=== PATIENT | male | born 1995 | race African-American/Black ===

== ENCOUNTER 2019-11-02 21:46 | Emergency (ER) | payer BC ==
[2019-11-02 23:12] VITALS: BP 121/80
[2019-11-02] MEDS ORDERED: CEPHALEXIN 500 MG CAPSULE PO ONE (23:27)
--- NOTE | 2019-11-02 23:33 | ER Document Report ---
ED General - General Chief Complaint: Insect Bite Stated Complaint: RIGHT HIP CYST Notes: Patient is a 23-year-old male with no significant past medical history presents to the emergency department with chief complaint of tender/hard and warm area to the right proximal buttock. He reports area began initially about 3 days ago. He states he is unsure of the etiology. 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 States he thought maybe he got struck in that area or hit the ground and had a hematoma collection. He states his is a nurse and felt like the area was warm and slightly erythematous, she sterilized a needle and poked it in the area and drained scant blood. He states the area of puncture has healed over but it is still warm, hard and red. He denies any purulent drainage, proximal streaking or fevers. No chills or night sweats. Past Medical History - Social History Smoking Status: Never Smoker Family History: Reviewed & Not Pertinent Review of Systems - Review of Systems Skin: Change in color -: Yes All other systems reviewed and negative Physical Exam - Vital signs Vitals: Temp Pulse Resp BP Pulse Ox 98.0 F 80 16 121/80 99 11/02/19 23:08 11/02/19 23:08 11/02/19 23:08 11/02/19 23:08 11/02/19 23:08 - General General appearance: Appears well, Alert - Respiratory Respiratory status: No respiratory distress Chest status: Nontender Breath sounds: Normal Chest palpation: Normal - Cardiovascular Rhythm: Regular Heart sounds: Normal auscultation Murmur: No - Neurological Neuro grossly intact: Yes Cognition: Normal Orientation: AAOx4 - Psychological Associated symptoms: Normal affect, Normal mood - Skin Skin Color: Other - Area of induration and faint erythema to the right proximal buttock approximately 3 cm in vertical diameter by 7 cm in horizontal diameter. No fluctuance is appreciated. No drainage. No expanding cellulitis or proximal streaking. Slightly tender to palpation. Course - Re-evaluation Re-evalutation: 11/02/19 23:32 History and physical consistent with cellulitis or early abscess formation versus possible persistent hematoma from trauma. Offered patient further work- up with lab work and ultrasound of the area for more definitive answer. Advised would rather try the more conservative, "easy" approach. His tetanus is up-to-date from the . He would like to trial a course of antibiotics to see if it improves prior to have any additional modalities and studies. [place] 2 to 3 days for reevaluation. He will return here or any ER immediately with any new, persistent or worsening symptoms. He verbalized understood and agreed. - Vital Signs Vital signs: Temp Pulse Resp BP Pulse Ox 98 F 80 16 121/80 99 11/02/19 23:23 11/02/19 23:08 11/02/19 23:08 11/02/19 23:08 11/02/19 23:08 Discharge - Discharge Clinical Impression: Induration of skin Cellulitis Qualifiers: Site of cellulitis: buttock Qualified Code(s): L03.317 - Cellulitis of buttock Condition: Stable Disposition: HOME, SELF-CARE Instructions: Cellulitis ([facility]) Additional Instructions: Follow-up with your regular doctor in 2 to 3 days for reevaluation. Return here or any ER immediately with any new, persistent or worsening symptoms. Prescriptions: Cephalexin Monohydrate [Keflex 500 mg Capsule] 500 mg PO Q6H 10 Days #39 capsule
== END 2019-11-02 23:45 | disposition home or self-care (01) ==
LOC: ER 21:46
DX: L03.317 Cellulitis of buttock (principal); R23.4 Changes in skin texture
CPT/HCPCS: 99281